=== PATIENT | male | born 1955 | race Caucasian/White ===

== ENCOUNTER 2016-05-10 07:12 | Emergency (ER) | payer BC ==
[2016-05-10 07:35] VITALS: BP 143/68
--- NOTE | 2016-05-10 07:44 | UC ---
Throat Pain/Nasal Atilio HPI - HPI Summary HPI Summary: fever and sore throat x 5 days . + bilateral ear pain x 2 days , bilateral eye redness and discharge x 1 day + cough , nasal congestion . - History of Current Complaint Chief Complaint: UCRespiratory Stated Complaint: COUGH, EAR COMPLAINT Time Seen by Provider: 05/10/16 07:27 Hx Obtained From: Patient Onset/Duration: Gradual Onset, Lasting Days - 5, Still Present Severity: Moderate Cough: Nonproductive Associated Signs & Symptoms: Positive: Nasal Discharge, Fever. Negative: Wheezing, Sinus Discomfort - Allergies/Home Medications Allergies/Adverse Reactions: Allergies Allergy/AdvReac Type Severity Reaction Status Date / Time No Known Allergies Allergy Verified 05/10/16 07:30 Home Medications: Home Medications GuaiFENesin DM* [Robitussin DM*] 10 ml PO Q6H PRN 05/10/16 [History Confirmed ] Ibuprofen TAB* [Advil TAB*] 200 mg PO Q6H PRN 05/10/16 [History Confirmed ] Pseudoephedrine TAB* [Sudafed TAB*] 30 mg PO Q6H PRN 05/10/16 [History Confirmed 05/10/16] PMH/Surg Hx/FS Hx/Imm Hx Endocrine History Of: Denies: Diabetes, Thyroid Disease Cardiovascular History Of: Denies: Cardiac Disorders - Surgical History Surgical History: None - Family History Known Family History: Negative: Diabetes - Social History Alcohol Use: None Substance Use Type: None Smoking Status (MU): Never Smoked Tobacco - Immunization History Most Recent Influenza Vaccination: December 2015 Review of Systems Constitutional: Fever, Chills, Fatigue Skin: Negative Eyes: Drainage, Eye Redness ENT: Sore Throat, Nasal Discharge Respiratory: Cough Cardiovascular: Negative Gastrointestinal: Negative All Other Systems Reviewed And Are Negative: Yes Physical Exam Triage Information Reviewed: Yes Appearance: Well-Appearing, No Pain Distress, Well-Nourished Vital Signs: Initial Vital Signs Temp 98.8 F 05/10/16 07:29 Pulse 78 05/10/16 07:29 Resp 16 05/10/16 07:29 BP 143/68 05/10/16 07:29 Pulse Ox 98 05/10/16 07:29 Vital Signs Reviewed: Yes Eyes: Positive: Conjunctiva Inflamed, Discharge ENT: Positive: Normal ENT inspection, Hearing grossly normal, Pharyngeal erythema, Nasal drainage, TM bulging, TM dull, TM red - right eye Neck exam: Normal Neck: Positive: Supple, Nontender, No Lymphadenopathy Respiratory Exam: Normal Respiratory: Positive: Chest non-tender, Lungs clear, Normal breath sounds Cardiovascular: Positive: RRR, No Murmur, Pulses Normal Skin Exam: Normal Throat Pain/Nasal Course/Dx - Differential Dx/Diagnosis Provider Diagnoses: conjunctivitis. otitis medai Discharge - Discharge Plan Condition: Stable Disposition: HOME Prescriptions: Amoxicillin (*) 875 mg PO BID #20 tab Tobramycin 0.3% OPHTH.EILEEN* 1 drop BOTH EYES Q4H #1 btl Patient Education Materials: Otitis Media (ED), Conjunctivitis (ED) Additional Instructions: follow up with your pcp in 5 days if not better
== END 2016-05-10 08:00 | disposition home or self-care (01) ==
LOC: UCCORT 07:12
DX: H10.9 Unspecified conjunctivitis (principal); H66.93 Otitis media, unspecified, bilateral; R03.0 Elevated blood-pressure reading, without diagnosis of hypertension
CPT/HCPCS: 99202; G0463

== ENCOUNTER 2016-05-19 07:04 | Emergency (ER) | payer BC ==
--- NOTE | 2016-05-19 07:27 | UC ---
Ear Complaint HPI - HPI Summary HPI Summary: right ear plugged x 10 days recent hx of otitis media on Amoxicillin cont. to have problems with his right ear , can't hear well form right ear, no ear pain , + nasal congestion, no cough , no fever - History of Current Complaint Chief Complaint: UCEar Stated Complaint: EAR PAIN Time Seen by Provider: 05/19/16 07:10 Hx Obtained From: Patient Onset/Duration: Gradual Onset, Lasting Days - 10, Still Present Severity Initially: Moderate Severity Currently: Moderate Aggravating Factors: Nothing Alleviating Factors: Nothing Associated Signs/Symptoms: Positive: Hearing Loss, URI Symptoms. Negative: Discharge, Foreign Body Sensation, Trauma to Ear, Swelling @ - Allergies/Home Medications Allergies/Adverse Reactions: Allergies Allergy/AdvReac Type Severity Reaction Status Date / Time No Known Allergies Allergy Verified 05/19/16 07:17 Home Medications: Home Medications [id number] [Nyquil Severe Cold/Flu 5-6.25-10-325 mg/15Ml] 1 liq PO QPM PRN 05/19/16 [History Confirmed 05/19/16] PMH/Surg Hx/FS Hx/Imm Hx Endocrine History Of: Denies: Diabetes, Thyroid Disease Cardiovascular History Of: Denies: Cardiac Disorders - Surgical History Surgical History: None - Family History Known Family History: Negative: Diabetes - Social History Alcohol Use: None Substance Use Type: None Smoking Status (MU): Never Smoked Tobacco - Immunization History Most Recent Influenza Vaccination: December 2015 Review of Systems Constitutional: Negative Skin: Negative Eyes: Negative ENT: Other - right ear plugged Respiratory: Negative Cardiovascular: Negative Gastrointestinal: Negative Genitourinary: Negative All Other Systems Reviewed And Are Negative: Yes Physical Exam Triage Information Reviewed: Yes Appearance: Well-Appearing, No Pain Distress, Well-Nourished Vital Signs: Initial Vital Signs Temp 97.9 F 05/19/16 07:08 Pulse 83 05/19/16 07:08 Resp 18 05/19/16 07:08 BP 157/76 05/19/16 07:08 Pulse Ox 100 05/19/16 07:08 Vital Signs Reviewed: Yes Eyes: Positive: Conjunctiva Clear ENT: Positive: Normal ENT inspection, Hearing grossly normal, TMs normal, TM bulging - right ear. Negative: Pharyngeal erythema, Nasal congestion, Nasal drainage Dental Exam: Normal Respiratory: Positive: Chest non-tender, Lungs clear, Normal breath sounds Cardiovascular: Positive: RRR, No Murmur, Pulses Normal Psychological Exam: Normal Ear Complaint Course/Dx - Differential Dx/Diagnosis Provider Diagnoses: eustachian tube dysfunction Discharge - Discharge Plan Condition: Stable Disposition: HOME Patient Education Materials: Eustachian Tube Dysfunction (GEN) Additional Instructions: use Flonase otc nasal spray 2 spray each nostril daily
[2016-05-19 07:36] VITALS: BP 149/86
== END 2016-05-19 07:42 | disposition home or self-care (01) ==
LOC: UCCORT 07:04
DX: H69.91 Unspecified Eustachian tube disorder, right ear (principal)
CPT/HCPCS: 99212; G0463